=== PATIENT | male | born 1970 | race African-American/Black ===

== ENCOUNTER 2025-01-22 16:13 | Inpatient (IN) | payer MEDICARE, OTHER ==
[~2025-01-22] VITALS: Ht 195.6 cm; Wt 75.4 kg
[2025-01-22 16:15] VITALS: O2SAT 98
[2025-01-22 17:29] LABS: BASOPHILS % 1.1 % (0.0-2.0); EOSINOPHILS % 0.5 % (0.0-5.0); HEMATOCRIT. 40.2 % (42.0-52.0); HEMOGLOBIN. 12.8 g/dL (14.0-18.0); LYMPHOCYTES % 17.8 % (20.0-50.0); MEAN PLATELET VOLUME 7.7 fl (7.4-10.4); MONOCYTES % 8.9 % (2.0-8.0); NEUTROPHILS % 71.7 % (40.0-76.0); PLATELET 334 x1000/uL (130-400); RED BLOOD CELL COUNT 4.93 mill/uL (4.7-6.1); RED CELL DISTRIBUTION WIDTH 16.8 % (11.6-14.6)
[2025-01-22 17:36] LABS: CREATININE 3.3 mg/dL (0.6-1.3); UREA NITROGEN BLOOD 42 mg/dL (9-23)
[2025-01-22 17:38] LABS: ASPARTATE AMINOTRANSFERASE 28 IU/L (<34); BILIRUBIN DIRECT 0.2 mg/dL (<=3.0); BILIRUBIN TOTAL 0.5 mg/dL (0.1-1.0); PROTEIN TOTAL 6.4 g/dL (6.0-8.3)
[2025-01-22] MEDS: HYDRALAZINE 20MG/ML VIAL IV ONE (22:18)
[2025-01-23 02:26] VITALS: BP 182/110; PULSE 110; RESP 22; TEMP 37.0296
[2025-01-23] MEDS ORDERED: HYDROCODONE/ACETAMINOPHEN 5/325MG TABLET PO PRN (02:30)
[2025-01-23] MEDS ORDERED: NALOXONE HCL 0.4MG/ML VIAL IV PRN (02:30)
[2025-01-23] MEDS: HYDRALAZINE HCL 100MG TABLET PO SCH (06:10)
[2025-01-23 08:00] VITALS: BP 172/111; PULSE 86; RESP 18; TEMP 36.6; O2SAT 96
[2025-01-23] MEDS: LOSARTAN 25 MG TABLET PO SCH (09:23)
[2025-01-23] MEDS: AMLODIPINE 10MG TABLET PO SCH (09:23)
[2025-01-23 12:00] VITALS: BP 161/98; PULSE 90; RESP 18; TEMP 36.1; O2SAT 96
[2025-01-23 12:37] LABS: HEMATOCRIT. 43.4 % (42.0-52.0); HEMOGLOBIN. 13.7 g/dL (14.0-18.0); MEAN PLATELET VOLUME 7.9 fl (7.4-10.4); PLATELET 336 x1000/uL (130-400); RED BLOOD CELL COUNT 5.37 mill/uL (4.7-6.1); RED CELL DISTRIBUTION WIDTH 16.6 % (11.6-14.6)
[2025-01-23] MEDS: NIFEDIPINE XL 60MG TAB PO SCH (14:32)
[2025-01-23 14:44] LABS: CREATININE 2.8 mg/dL (0.6-1.3)
[2025-01-23 14:45] LABS: UREA NITROGEN BLOOD 40.0 mg/dL (9-23)
[2025-01-23 16:00] VITALS: BP 172/105; PULSE 64; RESP 18; TEMP 36.7; O2SAT 96
[2025-01-23] MEDS ORDERED: NIFE-32 MT (16:11)
[2025-01-23] MEDS ORDERED: HYDR100T31 PO (16:11)
[2025-01-23 20:00] VITALS: BP 152/90; PULSE 105; RESP 18; TEMP 36.3; O2SAT 95
[2025-01-24] VITALS (9 sets, daily range): BP systolic 142–185; BP diastolic 96–125; PULSE 74–99; RESP 18–21; TEMP 36.1–36.4; O2SAT 97–100
[2025-01-24 07:05] LABS: BAND% 2.0 % (1.0-6.0); LYMPHOCYTES % MANUAL 23.0 % (20.0-50.0); MONOCYTES % MANUAL 6.0 % (2.0-8.0); NEUTROPHILS % MANUAL 69.0 % (45.0-75.0); PLATELET ESTIMATE NORMAL
[2025-01-24] MEDS ORDERED: CLON0.1T MT (09:41)
[2025-01-24] MEDS: CLONIDINE 0.1MG TABLET PO SCH ×2 (09:53→14:00)
[2025-01-24] MEDS: CLONIDINE 0.1MG TABLET PO PRN (12:33)
[2025-01-24] MEDS: NIFEDIPINE XL 60MG TAB PO SCH (21:42)
[2025-01-25] VITALS (7 sets, daily range): BP systolic 139–181; BP diastolic 88–116; PULSE 91–102; RESP 15–22; TEMP 36.1–36.8; O2SAT 97–100
[2025-01-25] MEDS ORDERED: CLON0.3T MT (10:49)
[2025-01-25] MEDS ORDERED: MAGNESIUM/ALUMINUM HYDROXIDE/SIMETHICONE 30ML UDC PO PRN (11:00)
[2025-01-25] MEDS: FAMOTIDINE 20MG TABLET PO NR (11:51)
[2025-01-25] MEDS: CLONIDINE 0.3MG TABLET PO SCH (13:14)
== END 2025-01-25 16:37 | disposition home or self-care (01) | DRG 199 ==
LOC: ER 16:13 → 7EST 20:48 → EDBEDREQTM 20:58 → EDBEDREQ 20:58 → ENRESERV 23:55 → 6WST 01-23 04:03
PROVIDERS: ADMIT Internal Medicine; ATTEND Internal Medicine
DX: I16.0 Hypertensive urgency (principal); N17.0 Acute kidney failure with tubular necrosis; N18.9 Chronic kidney disease, unspecified; I12.9 Hypertensive chronic kidney disease with stage 1 through stage 4 chronic kidney disease, or unspecified chronic kidney disease; F17.210 Nicotine dependence, cigarettes, uncomplicated; F14.90 Cocaine use, unspecified, uncomplicated; G89.29 Other chronic pain; Z71.6 Tobacco abuse counseling
CPT/HCPCS: 36415; 74176; 80048; 80076; 85025; 99285; J0360